=== PATIENT | female | born 1975 | race Two or more races ===

== ENCOUNTER 2019-11-23 10:44 | Inpatient (IN) | payer OTHER ==
[~2019-11-23] VITALS: Ht 167.6 cm; Wt 88.2 kg
--- NOTE | 2019-11-23 11:56 | NUR ---
PT TO ROOM FROM LOBBY AT THIS TIME.
--- NOTE | 2019-11-23 12:14 | NUR ---
44 Y/O FEMALE PRESENTS TO ED WITH C/O ABDOMINAL PAIN. PER PT "I'VE HAD BELLY PAIN FOR 6 MONTHS. I STARTED BLEEDING TODAY. WHEN I POOPED THERE WAS BLOOD." NO C/O DYSURIA, N/V/D, TRAUMA, SYNCOPE, CP. PT AMBULATORY WITH STEADY GAIT TO BATHROOM.
[2019-11-23 13:02] LABS: BASOPHILS # (AUTO) 0.05 x10^3/uL (0-0.1); BASOPHILS % (AUTO) 1 % (0-1); EOSINOPHILS # (AUTO) 0.11 x10^3/uL (0-0.4); EOSINOPHILS % (AUTO) 2 % (1-7); LYMPHOCYTES # (AUTO) 1.29 x10^3/uL (1-3.4); LYMPHOCYTES % (AUTO) 19 % (22-44); MD NO; MEAN CORPUSCULAR HEMOGLOBIN 26.5 pg (27.0-34.8); MEAN CORPUSCULAR HGB CONC 32.9 g/dL (32.4-35.8); MEAN CORPUSCULAR VOLUME 80.6 fL (80-100); MEAN PLATELET VOLUME 10.6 fL (7.4-10.4); MONOCYTES # (AUTO) 0.36 x10^3/uL (0.2-0.8); MONOCYTES % (AUTO) 5 % (2-9); NEUTROPHILS # (AUTO) 5.11 x10^3/uL (1.8-6.8); NEUTROPHILS % (AUTO) 74 % (42-75); PLATELET COUNT 221 x10^3/uL (130-400); RED BLOOD COUNT 4.85 x10^6/uL (3.82-5.3); RED CELL DISTRIBUTION WIDTH 14.2 % (9.6-15.2)
[2019-11-23 13:12] LABS: ALBUMIN 3.5 g/dL (3.4-5.0); ANION GAP 7 mmol/L (5-15); CALCIUM 8.6 mg/dL (8.5-10.1); CHLORIDE 112 mmol/L (98-107)
--- NOTE | 2019-11-23 13:14 | NUR ---
piv established. PT TOLERATED WITH NO COMPLICATIONS.
[2019-11-23 13:49] LABS: MICROSCOPIC INDICATED
[2019-11-23 13:50] LABS: CULTURE INDICATED? YES
--- NOTE | 2019-11-23 14:14 | NUR ---
TASK RN: FIRST CONTACT WITH PT. Pt resting on gurney connected to spo2 monitor and nibp cuff. Sister is at bedside. NADN. No needs expressed, call light within reach.
--- NOTE | 2019-11-23 14:38 | NUR ---
CT DELAYED TO DO CODE NEURO FIRST
--- NOTE | 2019-11-23 14:59 | NUR ---
pt resting on guluizamSTATZ. doretha. pt playing on phone and watching tv. awaiting ct. no other needs requested at this time.
--- NOTE | 2019-11-23 15:10 | NUR ---
PT TO IMAGING
--- NOTE | 2019-11-23 15:39 | NUR ---
PT BACK FROM IMAGING.
[2019-11-23] MEDS ORDERED: OMNIPAQUE 350 MG/ML, 100ML BOTTLE ONE (16:43)
--- NOTE | 2019-11-23 16:47 | NUR ---
pt resting on dominic. doretha. friend bedside. explained to pt that another dr was being called. no needs requested at this time.
[2019-11-23] MEDS ORDERED: GADOTERATE 10 MMOL/20 ML VIAL ONE (17:49)
--- NOTE | 2019-11-23 18:00 | NUR ---
PT AT IMAGING.
--- NOTE | 2019-11-23 18:52 | NUR ---
LATE ENTRY FOR 1820 REPORT TO ROBERT DUBON. ALL QUESTIONS ANSWERED.
--- NOTE | 2019-11-23 19:00 | NUR ---
PT TRANSFERRED TO FLOOR. PT LEFT WITH ALL PERSONAL BELONGINGS.
[2019-11-23] MEDS ORDERED: ENALAPRILAT 1.25 MG/ML, 2ML IVPush PRN (19:30)
[2019-11-23] MEDS ORDERED: MOVIPREP POWDER 1 PREP KIT PO ONE (19:30)
[2019-11-23] MEDS ORDERED: TEMAZEPAM 15 MG CAPSULE PO PRN (19:30)
[2019-11-23] MEDS ORDERED: LIDODERM 5% PATCH TD PRN (19:30)
[2019-11-23] MEDS ORDERED: BISACODYL 10 MG SUPP PR PRN (19:30)
[2019-11-23] MEDS ORDERED: PLEASE ENTER ALLERGIES MC SCH ×2 (19:30→20:00)
[2019-11-23 22:16] VITALS: BP 158/87
[2019-11-23] MEDS: ONDANSETRON 2MG/ML, 2ML IVPush PRN (22:30)
[2019-11-24] MEDS ORDERED: MOVIPREP POWDER 1 PREP KIT PO ONE ×2 (01:30→18:00)
[2019-11-24 01:50] VITALS: BP 149/90
[2019-11-24] MEDS: ONDANSETRON 2MG/ML, 2ML IVPush PRN ×3 (03:28→18:21)
[2019-11-24 06:23] LABS: BASOPHILS # (AUTO) 0.05 x10^3/uL (0-0.1); BASOPHILS % (AUTO) 1 % (0-1); EOSINOPHILS % (AUTO) 0 % (1-7); LYMPHOCYTES # (AUTO) 0.71 x10^3/uL (1-3.4); LYMPHOCYTES % (AUTO) 8 % (22-44); MD NO; MEAN CORPUSCULAR HEMOGLOBIN 26.6 pg (27.0-34.8); MEAN CORPUSCULAR HGB CONC 33.3 g/dL (32.4-35.8); MEAN CORPUSCULAR VOLUME 79.8 fL (80-100); MEAN PLATELET VOLUME 10.5 fL (7.4-10.4); MONOCYTES # (AUTO) 0.26 x10^3/uL (0.2-0.8); MONOCYTES % (AUTO) 3 % (2-9); NEUTROPHILS # (AUTO) 7.44 x10^3/uL (1.8-6.8); NEUTROPHILS % (AUTO) 88 % (42-75); PLATELET COUNT 218 x10^3/uL (130-400); RED BLOOD COUNT 4.87 x10^6/uL (3.82-5.3); RED CELL DISTRIBUTION WIDTH 14.2 % (9.6-15.2)
[2019-11-24 06:35] LABS: ANION GAP 9 mmol/L (5-15); CALCIUM 8.3 mg/dL (8.5-10.1); CHLORIDE 108 mmol/L (98-107); CREATININE 0.61 mg/dL (0.55-1.02)
[2019-11-24] MEDS ORDERED: FLU VACC QS2019-20 36MOS UP/PF 0.5 ML IM-VACC ONE (07:30)
[2019-11-24 07:54] VITALS: BP 136/86
[2019-11-24] MEDS ORDERED: PROMETHAZINE 25 MG/ML, 1ML IM PRN (08:30)
[2019-11-24 08:47] LABS: PROTHROMBIN TIME 10.6 Seconds (9.6-11.5)
[2019-11-24 13:47] VITALS: BP 116/69
[2019-11-24] MEDS: morphine SULFATE 10 MG/ML, 1ML IVPush PRN (19:26)
[2019-11-24 19:31] VITALS: BP 129/83
[2019-11-25 00:15] VITALS: BP 123/83
[2019-11-25 06:59] VITALS: BP 105/69
[2019-11-25] MEDS ORDERED: MIDAZOLAM 1 MG/ML, 5ML ONE ×2 (09:01→10:30)
[2019-11-25] MEDS ORDERED: FENTANYL PF 100 MCG/2ML ONE ×2 (09:01→10:30)
[2019-11-25] MEDS ORDERED: LIDOCAINE 1%, 10ML ONE (10:24)
[2019-11-25] MEDS ORDERED: FLUMAZENIL 0.1 MG/1 ML, 5ML ONE (10:30)
[2019-11-25] MEDS ORDERED: NALOXONE 1 MG/ML, 2ML ONE (10:30)
[2019-11-25 12:45] VITALS: BP 134/77
[2019-11-25] MEDS: morphine SULFATE 10 MG/ML, 1ML IVPush PRN ×2 (13:37→22:14)
[2019-11-25] MEDS: SODIUM CHLORIDE 0.9% 1,000 ML IV SCH ×2 (14:30→23:48)
[2019-11-25 19:56] VITALS: BP 153/95
[2019-11-26 00:08] VITALS: BP 105/69
[2019-11-26] MEDS: CEFTRIAXONE PMX 1GM/50ML 50 ML IV SCH (06:22)
[2019-11-26 07:52] VITALS: BP 108/74
[2019-11-26] MEDS: SODIUM CHLORIDE 0.9% 1,000 ML IV SCH ×2 (08:53→21:27)
[2019-11-26] MEDS: morphine SULFATE 10 MG/ML, 1ML IVPush PRN (08:54)
[2019-11-26] MEDS ORDERED: MIDAZOLAM 1 MG/ML, 5ML ONE (10:37)
[2019-11-26] MEDS ORDERED: FLUMAZENIL 0.1 MG/1 ML, 5ML ONE (10:37)
[2019-11-26] MEDS ORDERED: FENTANYL PF 100 MCG/2ML ONE (10:37)
[2019-11-26] MEDS ORDERED: NALOXONE 1 MG/ML, 2ML ONE (10:37)
[2019-11-26] MEDS ORDERED: OMNIPAQUE 350 MG/ML, 75ML BOTTLE ONE (10:51)
[2019-11-26 14:15] VITALS: BP 121/74
[2019-11-26 19:04] VITALS: BP 143/88
[2019-11-27 02:06] VITALS: BP 116/67
[2019-11-27] MEDS: morphine SULFATE 10 MG/ML, 1ML IVPush PRN (05:32)
[2019-11-27] MEDS: CEFTRIAXONE PMX 1GM/50ML 50 ML IV SCH (05:34)
[2019-11-27 07:03] VITALS: BP 129/77
[2019-11-27] MEDS: SODIUM CHLORIDE 0.9% 1,000 ML IV SCH (08:56)
[2019-11-27 10:07] LABS: ALANINE AMINOTRANSFERASE 19 U/L (12-78); ANION GAP 4 mmol/L (5-15); CHLORIDE 108 mmol/L (98-107)
[2019-11-27 10:09] LABS: ALKALINE PHOSPHATASE 81 U/L (45-117); BILIRUBIN,TOTAL 0.4 mg/dL (0.2-1.0); TOTAL PROTEIN 7.1 g/dL (6.4-8.2)
[2019-11-27 13:04] VITALS: BP 118/78
[2019-11-27] MEDS ORDERED: POTASSIUM CHLORIDE 20 MEQ TAB.ER.PRT PO ONE (13:30)
[2019-11-27] MEDS ORDERED: ACETAMINOPHEN 325 MG TABLET PO PRN (14:00)
[2019-11-27] MEDS: NS + 20MEQ KCL 1,000 ML IV SCH (16:11)
[2019-11-27 19:14] VITALS: BP 126/71
[2019-11-27] MEDS: POLYETHYLENE GLYCOL 17 GM PACKET PO SCH (20:27)
[2019-11-28 01:02] VITALS: BP 120/73
[2019-11-28] MEDS: NS + 20MEQ KCL 1,000 ML IV SCH (01:52)
[2019-11-28 05:07] LABS: ANION GAP 5 mmol/L (5-15); CALCIUM 8.1 mg/dL (8.5-10.1); CHLORIDE 114 mmol/L (98-107); CREATININE 0.43 mg/dL (0.55-1.02)
[2019-11-28] MEDS: CEFTRIAXONE PMX 1GM/50ML 50 ML IV SCH (05:35)
[2019-11-28 07:38] VITALS: BP 124/84
[2019-11-28] MEDS: POLYETHYLENE GLYCOL 17 GM PACKET PO SCH ×2 (08:35→19:37)
[2019-11-28 13:06] VITALS: BP 121/75
[2019-11-28 19:21] VITALS: BP 131/84
[2019-11-29 00:50] VITALS: BP 106/72
[2019-11-29 04:58] LABS: ANION GAP 8 mmol/L (5-15); CALCIUM 8.4 mg/dL (8.5-10.1); CHLORIDE 110 mmol/L (98-107); CREATININE 0.43 mg/dL (0.55-1.02)
[2019-11-29 08:31] VITALS: BP 120/83
[2019-11-29] MEDS: POLYETHYLENE GLYCOL 17 GM PACKET PO SCH (09:01)
[2019-11-29] MEDS ORDERED: POLY17PO5 PO (13:08)
[2019-11-29 13:17] VITALS: BP 125/82
== END 2019-11-29 14:15 | disposition home or self-care (01) | DRG 375 ==
LOC: ED 12:49 → EDIP 16:48 → 4NW 18:52 → DCLOUNGE 11-29 14:00
PROVIDERS: ADMIT Hospitalist; ATTEND Family Medicine
PROC: 0DBN8ZX Excision of Sigmoid Colon, Via Natural or Artificial Opening Endoscopic, Diagnostic (ICD-10-PCS; 2019-11-25)
PROC: 0DBP8ZX Excision of Rectum, Via Natural or Artificial Opening Endoscopic, Diagnostic (ICD-10-PCS; principal; 2019-11-25 09:00)
DX: C18.7 Malignant neoplasm of sigmoid colon (principal); N39.0 Urinary tract infection, site not specified; B96.89 Other specified bacterial agents as the cause of diseases classified elsewhere; E11.9 Type 2 diabetes mellitus without complications; D17.9 Benign lipomatous neoplasm, unspecified; E66.01 Morbid (severe) obesity due to excess calories; Z51.5 Encounter for palliative care; K62.1 Rectal polyp; K76.9 Liver disease, unspecified; T45.1X5A Adverse effect of antineoplastic and immunosuppressive drugs, initial encounter; Z80.49 Family history of malignant neoplasm of other genital organs; Z23 Encounter for immunization; Z82.49 Family history of ischemic heart disease and other diseases of the circulatory system; Z83.3 Family history of diabetes mellitus; Z85.038 Personal history of other malignant neoplasm of large intestine; Z98.51 Tubal ligation status; Z68.31 Body mass index [BMI] 31.0-31.9, adult
CPT/HCPCS: 36415; 47000; 71260; 74177; 74183; 76942; 77012; 80048; 80053; 81001; 82040; 82378; 83735; 84100; 84703; 85025; 85610; 87077; 87086; 87186; 88305; 90686; 99152; 99153; 99156; 99157; 99285; G0378; J0696; J2250; J2405; J2550; J3010; J3480; Q9967; A4648; A9575; J2270; J2310; J7030

== ENCOUNTER → 2019-12-03 | Outpatient (CLI) | payer OTHER ==
[~2019-12-03] MED LIST: POLY17PO5 PO
== END | disposition home or self-care (01) ==
LOC: PETCFH 07:45
PROVIDERS: ATTEND Family Medicine
DX: C18.9 Malignant neoplasm of colon, unspecified (principal)
CPT/HCPCS: 78815; A9552

== ENCOUNTER 2019-12-17 07:04 | Day surgery (SDC) | payer OTHER ==
[~2019-12-17] VITALS: Ht 165.1 cm; Wt 86.6 kg
[2019-12-17] MEDS ORDERED: LIDOCAINE 1%, 10ML ONE (07:26)
[2019-12-17] MEDS ORDERED: LIDOCAINE 1%, 20ML ONE (07:27)
[2019-12-17 07:42] VITALS: BP 131/84
[2019-12-17] MEDS ORDERED: IBUP-1623 PO (07:45)
[2019-12-17] MEDS ORDERED: POLY17PO5 PO (07:45)
[2019-12-17] MEDS ORDERED: CEFAZOLIN PMX 1GM/50ML 50 ML ONE (07:53)
[2019-12-17] MEDS ORDERED: CEFAZOLIN PMX 1GM/50ML 50 ML IV ONE (08:00)
[2019-12-17] MEDS ORDERED: SODIUM CHLORIDE 0.9% 1,000 ML IV SCH (08:00)
[2019-12-17] MEDS ORDERED: FLUMAZENIL 0.1 MG/1 ML, 5ML ONE (08:14)
[2019-12-17] MEDS ORDERED: FENTANYL PF 100 MCG/2ML ONE ×2 (08:14)
[2019-12-17] MEDS ORDERED: MIDAZOLAM 1 MG/ML, 5ML ONE (08:14)
[2019-12-17] MEDS ORDERED: NALOXONE 1 MG/ML, 2ML ONE (08:14)
[2020-02-04] MEDS ORDERED: POLY17PO5 PO (09:14)
[2020-02-04] MEDS ORDERED: HYDR-3240 PO (09:14)
[2020-02-04] MEDS ORDERED: POTA20TA6 PO (09:14)
[2020-02-04] MEDS ORDERED: SENN-193 PO (09:14)
== END 2019-12-17 10:55 | disposition home or self-care (01) ==
LOC: OUT 07:04
PROVIDERS: ATTEND Internal Medicine
DX: C18.7 Malignant neoplasm of sigmoid colon (principal); Z98.51 Tubal ligation status; Z80.41 Family history of malignant neoplasm of ovary
CPT/HCPCS: 36561; 76937; 77001; 99156; 99157; C1788; C1894; J0690; J1642; J2250; J3010; J7030; J2310

== ENCOUNTER 2020-03-07 08:25 | Inpatient (IN) | payer OTHER ==
[~2020-03-07] VITALS: Ht 165.1 cm; Wt 84.3 kg
[~2020-03-07 08:25] MED LIST changes: +HYDR-3240 PO; +IBUP-1623 PO; +POTA20TA6 PO; +SENN-193 PO
[2020-03-07] MEDS ORDERED: MORPHINE SULFATE 4 MG/ML, 1ML IVPush PRN (09:00)
[2020-03-07] MEDS ORDERED: ONDANSETRON 2MG/ML, 2ML IVPush ONE (09:00)
[2020-03-07] MEDS ORDERED: SODIUM CHLORIDE FLUSH 10ML SYR IVF ONE (09:00)
[2020-03-07] MEDS ORDERED: SODIUM CHLORIDE 0.9% 1,000ML IVBOLUS ONE (09:00)
--- NOTE | 2020-03-07 09:08 | NUR ---
CONSTIPATION AND ABDOMINAL PAIN. UNDERGOING TX FOR COLON CA WITH STENT PLACED ONE MONTH AGO. PT OFF FLOOR TO XRAY
[2020-03-07] MEDS ORDERED: ONDANSETRON 2MG/ML, 2ML ONE ×3 (09:39→13:54)
[2020-03-07] MEDS ORDERED: METRONIDAZOLE PMX 500MG/100ML 100 ML ONE (09:39)
[2020-03-07] MEDS ORDERED: MORPHINE SULFATE 4 MG/ML, 1ML ONE (09:40)
[2020-03-07 09:58] LABS: CHLORIDE 109 mmol/L (98-107)
[2020-03-07 09:59] LABS: MEAN CORPUSCULAR HEMOGLOBIN 26.2 pg (27.0-34.8); MEAN CORPUSCULAR HGB CONC 32.9 g/dL (32.4-35.8); MEAN CORPUSCULAR VOLUME 79.7 fL (80-100); MEAN PLATELET VOLUME 9.2 fL (7.4-10.4); PLATELET COUNT 156 x10^3/uL (130-400); RED BLOOD COUNT 4.27 x10^6/uL (3.82-5.3)
[2020-03-07] MEDS ORDERED: METRONIDAZOLE PMX 500MG/100ML 100 ML IV ONE (10:00)
[2020-03-07] MEDS ORDERED: CEFOTETAN PMX 2GM/50ML 50 ML IV ONE (10:00)
[2020-03-07 10:04] LABS: ALANINE AMINOTRANSFERASE 35 U/L (12-78); ALBUMIN 2.9 g/dL (3.4-5.0); ANION GAP 8 mmol/L (5-15); CALCIUM 8.4 mg/dL (8.5-10.1); CREATININE 0.47 mg/dL (0.55-1.02)
--- NOTE | 2020-03-07 10:20 | NUR ---
AFTER 2 SETS OF CULTURES OBTAINED, ANTIBIOTICS INFUSING WITH IV BOLUS PER ORDERS AND MEDICATED FOR ABDOMINAL PAIN. MD DISCUSSING RESULTS OF XRAY AND NEED FOR SURGERY. TO CT VIA GLADYS.
[2020-03-07 10:23] LABS: ALKALINE PHOSPHATASE 96 U/L (45-117); BILIRUBIN,TOTAL 0.8 mg/dL (0.2-1.0); TOTAL PROTEIN 7.3 g/dL (6.4-8.2)
[2020-03-07 10:48] LABS: MD YES
[2020-03-07 10:52] LABS: BAND#(MANUAL) 0.46 x10^3/uL; BANDS%(MANUAL) 8 % (0-7); BASOS#(MANUAL) 0.06 x10^3/uL (0-0.1); BASOS% (MANUAL) 1 % (0-1); EOS#(MANUAL) 0.06 x10^3/uL (0.0-0.4); EOS% (MANUAL) 1 % (1-7); LYMPH#(MANUAL) 0.52 x10^3/uL (1-3.4); LYMPHS% (MANUAL) 9 % (22-44); MONOS#(MANUAL) 0.06 x10^3/uL (0.3-2.7); MONOS% (MANUAL) 1 % (2-9); SEG#(MANUAL) 4.64 x10^3/uL (1.8-6.8); SEGS% (MANUAL) 80 % (42-75)
[2020-03-07 10:53] LABS: <PLATELET ESTIMATE> ADEQUATE; <PLT MORPHOLOGY> NORMAL PLT MORPH; <RBC MORPHOLOGY> NORMAL
[2020-03-07] MEDS ORDERED: OMNIPAQUE 350 MG/ML, 100ML BOTTLE ONE (11:19)
--- NOTE | 2020-03-07 11:20 | NUR ---
REPORT TO MAXIM JONES. PT TO BE TRANSPORTED TO FLOOR.
[2020-03-07 11:35] VITALS: BP 129/71
[2020-03-07] MEDS ORDERED: CHLORHEXIDINE 15 ML UDC MM ONE (12:00)
[2020-03-07] MEDS ORDERED: MIDAZOLAM 1 MG/ML, 2ML ONE ×2 (12:02→12:26)
[2020-03-07] MEDS ORDERED: FENTANYL PF 250 MCG/5ML ONE ×2 (12:02→12:26)
[2020-03-07] MEDS ORDERED: SUCCINYLCHOLINE 20 MG/ML, 10ML ONE ×2 (12:26→13:54)
[2020-03-07] MEDS ORDERED: ROCURONIUM 10MG/ML,5ML ONE ×2 (12:26→13:54)
[2020-03-07] MEDS ORDERED: PROPOFOL 10 MG/ML, 20ML ONE ×2 (12:26→13:54)
[2020-03-07] MEDS ORDERED: NEOSTIGMINE 1 MG/ML, 10ML ONE ×2 (12:26→13:54)
[2020-03-07] MEDS ORDERED: GLYCOPYRROLATE 0.2MG/1ML, 5ML ONE ×2 (12:26→13:54)
[2020-03-07] MEDS ORDERED: FENTANYL PF 100 MCG/2ML ONE ×4 (12:26→15:08)
[2020-03-07] MEDS ORDERED: SODIUM CHLORIDE 0.9% 1,000 ML IV SCH (13:28)
[2020-03-07] MEDS ORDERED: ONDANSETRON 2MG/ML, 2ML IVPush PRN (13:30)
[2020-03-07] MEDS ORDERED: hydrALAzine 20 MG/ML, 1ML IVPush PRN (13:30)
[2020-03-07] MEDS ORDERED: HYDROmorphone 2 MG/ML, 1ML IVPush PRN (13:30)
[2020-03-07] MEDS ORDERED: DEXAMETHASONE 4 MG/ML, 1ML ONE (13:54)
[2020-03-07] MEDS ORDERED: CEFAZOLIN 1,000 MG ONE (13:54)
[2020-03-07] MEDS ORDERED: OXYcodone 5 MG/5 ML ORAL.SOL UDC ONE (14:42)
[2020-03-07] MEDS: FENTANYL PF 100 MCG/2ML IV PRN ×4 (14:44→15:21)
[2020-03-07] MEDS ORDERED: HALOPERIDOL 5 MG/ML IV PRN (15:00)
[2020-03-07] MEDS ORDERED: MEPERIDINE/PF 25MG/0.5ML IVPush PRN (15:00)
[2020-03-07] MEDS ORDERED: hydrALAzine 20 MG/ML, 1ML IV PRN (15:00)
[2020-03-07] MEDS ORDERED: DIPHENHYDRAMINE 50 MG/ML, 1ML IVPush PRN ×2 (15:00→16:30)
[2020-03-07] MEDS ORDERED: LABETALOL 5MG/ML, 20ML IV PRN (15:00)
[2020-03-07] MEDS ORDERED: PROMETHAZINE 25 MG/ML, 1ML IVPush PRN (15:00)
[2020-03-07] MEDS ORDERED: OXYcodone 5 MG/5 ML ORAL.SOL UDC PO PRN (15:00)
[2020-03-07] MEDS ORDERED: HYDROmorphone 1 MG/ML, 1ML INJ IVPush PRN (15:00)
[2020-03-07] MEDS ORDERED: HYDROmorphone 1 MG/ML, 1ML INJ ONE (15:33)
[2020-03-07 16:20] VITALS: BP 99/62
[2020-03-07] MEDS ORDERED: TRAZODONE 50MG TABLET PO PRN (16:30)
[2020-03-07] MEDS ORDERED: CALCIUM CARBONATE 500 MG TAB.CHEW PO PRN (16:30)
[2020-03-07] MEDS ORDERED: HALOPERIDOL 5 MG/ML IVPush PRN (16:30)
[2020-03-07] MEDS ORDERED: SCOPOLAMINE 1MG PATCH TD PRN (16:30)
[2020-03-07] MEDS ORDERED: LORazepam 2 MG/ML, 1ML IVPush PRN (16:30)
[2020-03-07] MEDS ORDERED: DEXAMETHASONE 4 MG/ML, 1ML IVPush PRN (16:30)
[2020-03-07] MEDS ORDERED: DIPHENHYDRAMINE 25 MG CAPSULE PO PRN (16:30)
[2020-03-07] MEDS ORDERED: LORazepam 1MG TABLET PO PRN (16:30)
[2020-03-07] MEDS: PIPERACILLIN/TAZO/PMX 3.375GM 50 ML IV SCH (18:34)
[2020-03-07] MEDS: LACTATED RINGERS 1,000 ML IV SCH (18:34)
[2020-03-07] MEDS: ACETAMINOPHEN 500 MG TABLET PO SCH (18:34)
[2020-03-07] MEDS: KETOROLAC 30 MG/1 ML IVPush SCH (18:35)
[2020-03-07] MEDS: ONDANSETRON 2MG/ML, 2ML IV PRN (18:42)
[2020-03-07 19:42] LABS: MICROSCOPIC INDICATED
[2020-03-07 20:17] VITALS: BP 100/53
[2020-03-07] MEDS: FAMOTIDINE 20 MG/2 ML IVPush SCH (20:36)
[2020-03-07] MEDS: INSULIN REGULAR, HUMAN 100 UNIT/ML 3ML VIAL LOW DOSE SS SQ-INSULIN SCH (20:36)
[2020-03-07 23:28] VITALS: BP 95/59
[2020-03-08] MEDS: KETOROLAC 30 MG/1 ML IVPush SCH ×4 (00:34→18:30)
[2020-03-08] MEDS: ACETAMINOPHEN 500 MG TABLET PO SCH ×4 (00:35→18:30)
[2020-03-08] MEDS: PIPERACILLIN/TAZO/PMX 3.375GM 50 ML IV SCH ×4 (00:36→18:30)
[2020-03-08] MEDS: LACTATED RINGERS 1,000 ML IV SCH ×3 (02:22→22:15)
[2020-03-08 03:57] VITALS: BP 98/67
[2020-03-08 04:44] LABS: MEAN CORPUSCULAR HEMOGLOBIN 26.2 pg (27.0-34.8); MEAN CORPUSCULAR HGB CONC 32.6 g/dL (32.4-35.8); MEAN CORPUSCULAR VOLUME 80.3 fL (80-100); MEAN PLATELET VOLUME 9.3 fL (7.4-10.4); PLATELET COUNT 115 x10^3/uL (130-400); RED BLOOD COUNT 3.41 x10^6/uL (3.82-5.3); RED CELL DISTRIBUTION WIDTH 16.4 % (9.6-15.2)
[2020-03-08 04:54] LABS: ALBUMIN 1.9 g/dL (3.4-5.0); ANION GAP 7 mmol/L (5-15); CALCIUM 7.9 mg/dL (8.5-10.1); CHLORIDE 109 mmol/L (98-107)
[2020-03-08 04:57] LABS: ALANINE AMINOTRANSFERASE 23 U/L (12-78); ALKALINE PHOSPHATASE 72 U/L (45-117); BILIRUBIN,TOTAL 0.7 mg/dL (0.2-1.0); CREATININE 0.43 mg/dL (0.55-1.02); TOTAL PROTEIN 5.6 g/dL (6.4-8.2)
[2020-03-08 05:43] LABS: MD YES
[2020-03-08 05:45] LABS: BAND#(MANUAL) 0.76 x10^3/uL; BANDS%(MANUAL) 12 % (0-7); MONOS#(MANUAL) 0.06 x10^3/uL (0.3-2.7); MONOS% (MANUAL) 1 % (2-9)
[2020-03-08 05:46] LABS: <PLATELET ESTIMATE> DECREASED; <PLT MORPHOLOGY> NORMAL PLT MORPH; <RBC MORPHOLOGY> NORMAL; LYMPH#(MANUAL) 1.07 x10^3/uL (1-3.4); LYMPHS% (MANUAL) 17 % (22-44); SEG#(MANUAL) 4.41 x10^3/uL (1.8-6.8); SEGS% (MANUAL) 70 % (42-75)
[2020-03-08] MEDS: INSULIN REGULAR, HUMAN 100 UNIT/ML 3ML VIAL LOW DOSE SS SQ-INSULIN SCH ×4 (07:08→21:00)
[2020-03-08 07:26] VITALS: BP 98/62
[2020-03-08] MEDS: SENNA/DOCUSATE TABLET PO SCH (08:38)
[2020-03-08] MEDS: FAMOTIDINE 20 MG/2 ML IVPush SCH (08:38)
[2020-03-08] MEDS: ENOXAPARIN 40 MG/0.4 ML SQ SCH (08:38)
[2020-03-08 13:24] VITALS: BP 107/64
[2020-03-08] MEDS: D5%-0.9% NACL+KCL 20MEQ 1,000 ML IV SCH (15:56)
[2020-03-08] MEDS ORDERED: LACTATED RINGERS 1,000 ML IV SCH (16:30)
[2020-03-08] MEDS: ONDANSETRON 2MG/ML, 2ML IV PRN (17:29)
[2020-03-08 19:26] VITALS: BP 103/61
[2020-03-08] MEDS: FAMOTIDINE 20 MG TABLET PO SCH (21:33)
[2020-03-09] MEDS: ACETAMINOPHEN 500 MG TABLET PO SCH ×4 (01:08→21:07)
[2020-03-09] MEDS: KETOROLAC 30 MG/1 ML IVPush SCH ×4 (01:08→21:07)
[2020-03-09 01:11] VITALS: BP 110/71
[2020-03-09] MEDS: PIPERACILLIN/TAZO/PMX 3.375GM 50 ML IV SCH ×4 (01:15→18:42)
[2020-03-09 05:30] LABS: ALBUMIN 1.9 g/dL (3.4-5.0); ANION GAP 6 mmol/L (5-15); CALCIUM 7.5 mg/dL (8.5-10.1); CHLORIDE 108 mmol/L (98-107)
[2020-03-09 05:31] LABS: MEAN CORPUSCULAR HEMOGLOBIN 26.3 pg (27.0-34.8); MEAN CORPUSCULAR HGB CONC 32.7 g/dL (32.4-35.8); MEAN CORPUSCULAR VOLUME 80.3 fL (80-100); MEAN PLATELET VOLUME 9.9 fL (7.4-10.4); PLATELET COUNT 124 x10^3/uL (130-400); RED BLOOD COUNT 3.38 x10^6/uL (3.82-5.3); RED CELL DISTRIBUTION WIDTH 16.2 % (9.6-15.2)
[2020-03-09 05:35] LABS: ALANINE AMINOTRANSFERASE 23 U/L (12-78); ALKALINE PHOSPHATASE 77 U/L (45-117); BILIRUBIN,TOTAL 0.5 mg/dL (0.2-1.0); CREATININE 0.44 mg/dL (0.55-1.02); TOTAL PROTEIN 5.6 g/dL (6.4-8.2)
[2020-03-09] MEDS: LACTATED RINGERS 1,000 ML IV SCH ×2 (05:50→16:27)
[2020-03-09 06:23] LABS: BAND#(MANUAL) 0.72 x10^3/uL; BANDS%(MANUAL) 10 % (0-7); LYMPH#(MANUAL) 1.51 x10^3/uL (1-3.4); LYMPHS% (MANUAL) 21 % (22-44); MD YES; MONOS#(MANUAL) 0.14 x10^3/uL (0.3-2.7); MONOS% (MANUAL) 2 % (2-9); SEG#(MANUAL) 4.82 x10^3/uL (1.8-6.8); SEGS% (MANUAL) 67 % (42-75)
[2020-03-09 06:24] LABS: TOXIC GRAN 1+
[2020-03-09 06:25] LABS: <PLATELET ESTIMATE> DECREASED; <PLT MORPHOLOGY> NORMAL PLT MORPH; <RBC MORPHOLOGY> NORMAL
[2020-03-09] MEDS: D5%-0.9% NACL+KCL 20MEQ 1,000 ML IV SCH ×2 (06:28→18:42)
[2020-03-09 07:26] VITALS: BP 136/91
[2020-03-09] MEDS: INSULIN REGULAR, HUMAN 100 UNIT/ML 3ML VIAL LOW DOSE SS SQ-INSULIN SCH ×4 (08:10→21:00)
[2020-03-09] MEDS: FAMOTIDINE 20 MG TABLET PO SCH ×2 (08:22→21:00)
[2020-03-09] MEDS: SENNA/DOCUSATE TABLET PO SCH (08:22)
[2020-03-09] MEDS: ENOXAPARIN 40 MG/0.4 ML SQ SCH (08:23)
[2020-03-09 12:30] VITALS: BP 132/85
[2020-03-09] MEDS: POTASSIUM CHLORIDE 20 MEQ TAB.ER.PRT PO SCH (18:42)
[2020-03-09 19:53] VITALS: BP 120/82
[2020-03-09] MEDS ORDERED: FAMOTIDINE 40 MG TABLET ONE (21:04)
[2020-03-10] MEDS: PIPERACILLIN/TAZO/PMX 3.375GM 50 ML IV SCH ×4 (00:29→18:44)
[2020-03-10 01:07] VITALS: BP 121/81
[2020-03-10] MEDS: LACTATED RINGERS 1,000 ML IV SCH (02:30)
[2020-03-10] MEDS: KETOROLAC 30 MG/1 ML IVPush SCH (03:40)
[2020-03-10] MEDS: ACETAMINOPHEN 500 MG TABLET PO SCH ×4 (03:40→20:56)
[2020-03-10 05:48] LABS: MEAN CORPUSCULAR HEMOGLOBIN 26.1 pg (27.0-34.8); MEAN CORPUSCULAR HGB CONC 32.4 g/dL (32.4-35.8); MEAN CORPUSCULAR VOLUME 80.3 fL (80-100); MEAN PLATELET VOLUME 8.9 fL (7.4-10.4); PLATELET COUNT 152 x10^3/uL (130-400); RED BLOOD COUNT 3.26 x10^6/uL (3.82-5.3); RED CELL DISTRIBUTION WIDTH 17.1 % (9.6-15.2)
[2020-03-10 05:54] LABS: ALANINE AMINOTRANSFERASE 20 U/L (12-78); ANION GAP 6 mmol/L (5-15); CALCIUM 7.3 mg/dL (8.5-10.1); CHLORIDE 112 mmol/L (98-107)
[2020-03-10 05:57] LABS: ALBUMIN 1.6 g/dL (3.4-5.0); ALKALINE PHOSPHATASE 82 U/L (45-117); BILIRUBIN,TOTAL 0.4 mg/dL (0.2-1.0); CREATININE 0.34 mg/dL (0.55-1.02); TOTAL PROTEIN 5.4 g/dL (6.4-8.2)
[2020-03-10 06:04] LABS: BASOPHILS # (AUTO) 0.02 x10^3/uL (0-0.1); BASOPHILS % (AUTO) 1 % (0-1); EOSINOPHILS % (AUTO) 2 % (1-7); LYMPHOCYTES # (AUTO) 0.67 x10^3/uL (1-3.4); LYMPHOCYTES % (AUTO) 15 % (22-44); MD SCAN; MONOCYTES # (AUTO) 0.16 x10^3/uL (0.2-0.8); MONOCYTES % (AUTO) 4 % (2-9); NEUTROPHILS # (AUTO) 3.53 x10^3/uL (1.8-6.8); NEUTROPHILS % (AUTO) 79 % (42-75)
[2020-03-10 06:25] VITALS: BP 118/77
[2020-03-10] MEDS: INSULIN REGULAR, HUMAN 100 UNIT/ML 3ML VIAL LOW DOSE SS SQ-INSULIN SCH ×3 (07:50→16:20)
[2020-03-10] MEDS ORDERED: OXYcodone/APAP 5/325MG TABLET PO PRN (08:30)
[2020-03-10] MEDS: SENNA/DOCUSATE TABLET PO SCH (09:00)
[2020-03-10] MEDS: FAMOTIDINE 20 MG TABLET PO SCH ×2 (09:17→20:56)
[2020-03-10] MEDS: ENOXAPARIN 40 MG/0.4 ML SQ SCH (09:17)
[2020-03-10] MEDS: POTASSIUM CHLORIDE 20 MEQ TAB.ER.PRT PO SCH (09:18)
[2020-03-10 12:49] VITALS: BP 143/77
[2020-03-10] MEDS: OXYcodone IR 5MG TABLET PO PRN ×3 (14:24→18:44)
[2020-03-10] MEDS: ONDANSETRON 2MG/ML, 2ML IV PRN ×2 (16:13→23:16)
[2020-03-10 18:34] VITALS: BP 138/93
[2020-03-10] MEDS: SODIUM CHLORIDE FLUSH 3ML SYRINGE IVF SCH (21:00)
[2020-03-11] MEDS: PIPERACILLIN/TAZO/PMX 3.375GM 50 ML IV SCH ×2 (00:35→05:52)
[2020-03-11 00:42] VITALS: BP 119/80
[2020-03-11] MEDS: ACETAMINOPHEN 500 MG TABLET PO SCH ×2 (02:11→08:39)
[2020-03-11] MEDS: OXYcodone IR 5MG TABLET PO PRN ×2 (02:11→10:02)
[2020-03-11 02:43] LABS: BASOPHILS # (AUTO) 0.01 x10^3/uL (0-0.1); BASOPHILS % (AUTO) 0 % (0-1); EOSINOPHILS % (AUTO) 3 % (1-7); LYMPHOCYTES # (AUTO) 1.08 x10^3/uL (1-3.4); LYMPHOCYTES % (AUTO) 31 % (22-44); MD NO; MEAN CORPUSCULAR HEMOGLOBIN 26.1 pg (27.0-34.8); MEAN CORPUSCULAR HGB CONC 32.8 g/dL (32.4-35.8); MEAN CORPUSCULAR VOLUME 79.6 fL (80-100); MEAN PLATELET VOLUME 8.3 fL (7.4-10.4); MONOCYTES # (AUTO) 0.26 x10^3/uL (0.2-0.8); MONOCYTES % (AUTO) 7 % (2-9); NEUTROPHILS # (AUTO) 2.03 x10^3/uL (1.8-6.8); NEUTROPHILS % (AUTO) 58 % (42-75); PLATELET COUNT 208 x10^3/uL (130-400); RED BLOOD COUNT 3.58 x10^6/uL (3.82-5.3); RED CELL DISTRIBUTION WIDTH 16.7 % (9.6-15.2)
[2020-03-11 02:50] LABS: ANION GAP 5 mmol/L (5-15); CALCIUM 7.9 mg/dL (8.5-10.1); CHLORIDE 106 mmol/L (98-107); CREATININE 0.39 mg/dL (0.55-1.02)
[2020-03-11] MEDS ORDERED: metroNIDAZOLE 500 MG TABLET PO SCH (08:30)
[2020-03-11] MEDS: FAMOTIDINE 20 MG TABLET PO SCH (08:39)
[2020-03-11] MEDS: SENNA/DOCUSATE TABLET PO SCH (08:40)
[2020-03-11] MEDS: SODIUM CHLORIDE FLUSH 3ML SYRINGE IVF SCH (08:40)
[2020-03-11] MEDS: ENOXAPARIN 40 MG/0.4 ML SQ SCH (08:40)
[2020-03-11 08:42] VITALS: BP 144/92
[2020-03-11] MEDS: ONDANSETRON 2MG/ML, 2ML IV PRN (08:43)
[2020-03-11] MEDS ORDERED: SULFAMETH./TRIMETHOPRIM DS 800MG/160MG TABLET PO SCH (09:00)
[2020-03-11] MEDS ORDERED: CEFDINIR 300 MG CAPSULE PO SCH (09:00)
[2020-03-11] MEDS ORDERED: CEFD300C37 PO (10:08)
[2020-03-11] MEDS ORDERED: OXYC5TAB3 PO (10:08)
[2020-03-11] MEDS ORDERED: METR500T PO (10:08)
[2020-03-11] MEDS ORDERED: ONDA4TAB7 PO (10:08)
== END 2020-03-11 14:44 | disposition home or self-care (01) | DRG 329 ==
LOC: ED 09:42 → EDIP 09:58 → 4NE 11:32 → 3WST 03-08 22:37 → DCLOUNGE 03-11 14:23
PROVIDERS: ADMIT Internal Medicine; ATTEND Internal Medicine
PROC: 0DBP0ZZ Excision of Rectum, Open Approach (ICD-10-PCS; 2020-03-07)
PROC: 0D1N0Z4 Bypass Sigmoid Colon to Cutaneous, Open Approach (ICD-10-PCS; principal; 2020-03-07 12:00)
DX: K63.1 Perforation of intestine (nontraumatic) (principal); K65.8 Other peritonitis; C19 Malignant neoplasm of rectosigmoid junction; C78.7 Secondary malignant neoplasm of liver and intrahepatic bile duct; D62 Acute posthemorrhagic anemia; D72.825 Bandemia; E87.6 Hypokalemia; E88.09 Other disorders of plasma-protein metabolism, not elsewhere classified; Z20.828 Contact with and (suspected) exposure to other viral communicable diseases; R73.02 Impaired glucose tolerance (oral)
CPT/HCPCS: 36415; 74021; 84145; 96365; 96375; 99285; J3490; 74177; 80048; 80053; 81001; 82330; 82962; 83605; 83735; 84100; 84703; 85025; 87040; 87070; 87075; 87076; 87077; 87147; 87186; 87205; 87635; 88307; G0378; J0690; J1100; J1170; J1650; J1885; J2250; J2270; J2405; J2543; J2704; J2710; J3010; Q9967; C1765; J0330; J3480; J7030; J7120

== ENCOUNTER 2020-03-23 20:26 | Emergency (ER) | payer OTHER ==
[~2020-03-23] VITALS: Ht 167.6 cm; Wt 76.5 kg
[~2020-03-23 20:26] MED LIST changes: +CEFD300C37 PO; +METR500T PO; +ONDA4TAB7 PO; +OXYC5TAB3 PO
[2020-03-23 20:28] VITALS: BP 120/82
[2020-03-23 21:14] LABS: BASOPHILS # (AUTO) 0.08 x10^3/uL (0-0.1); BASOPHILS % (AUTO) 1 % (0-1); EOSINOPHILS # (AUTO) 0.07 x10^3/uL (0-0.4); EOSINOPHILS % (AUTO) 1 % (1-7); LYMPHOCYTES % (AUTO) 22 % (22-44); MD NO; MEAN CORPUSCULAR HEMOGLOBIN 26.1 pg (27.0-34.8); MEAN CORPUSCULAR HGB CONC 32.2 g/dL (32.4-35.8); MEAN PLATELET VOLUME 7.7 fL (7.4-10.4); MONOCYTES # (AUTO) 0.83 x10^3/uL (0.2-0.8); MONOCYTES % (AUTO) 12 % (2-9); NEUTROPHILS # (AUTO) 4.53 x10^3/uL (1.8-6.8); NEUTROPHILS % (AUTO) 65 % (42-75); PLATELET COUNT 490 x10^3/uL (130-400); RED BLOOD COUNT 4.18 x10^6/uL (3.82-5.3); RED CELL DISTRIBUTION WIDTH 18.6 % (9.6-15.2)
[2020-03-23 21:23] LABS: ANION GAP 6 mmol/L (5-15); CALCIUM 8.8 mg/dL (8.5-10.1); CHLORIDE 109 mmol/L (98-107); CREATININE 0.62 mg/dL (0.55-1.02)
--- NOTE | 2020-03-23 22:24 | NUR ---
PT RECIEVED EXTENSIVE EDUCATION BY RN REGARDING COLOSTOMY BAG APPLICATION. PT AND FAMILY MEMBER VERBALIZED UNDERSTANDING.
== END 2020-03-23 22:26 | disposition home or self-care (01) ==
LOC: ED 20:47
DX: R10.9 Unspecified abdominal pain (principal); Z85.038 Personal history of other malignant neoplasm of large intestine
CPT/HCPCS: 36415; 80048; 85025; 99283

== ENCOUNTER → 2020-03-24 | Outpatient (CLI) | payer OTHER | END | disposition home or self-care (01) | LOC: PETCFH 08:50 | PROVIDERS: ATTEND Internal Medicine | DX: C18.7 Malignant neoplasm of sigmoid colon (principal); C78.7 Secondary malignant neoplasm of liver and intrahepatic bile duct; R91.8 Other nonspecific abnormal finding of lung field | CPT/HCPCS: 78815; A9552 ==

== ENCOUNTER 2020-04-09 11:05 | Emergency (ER) | payer OTHER ==
[~2020-04-09] VITALS: Ht 165.1 cm; Wt 76.4 kg
--- NOTE | 2020-04-09 11:24 | NUR ---
THIS IS A 45 YO F W/ C/O N/V/D SINCE SATURDAY THIS WEEK. DENIES FEVERS/CHILLS/SOB/CP. PT WAS DX W/ COLON CANCER IN NOVEMBER THIS YEAR. PER PTS DAUGHTER, PT RECEIVING CHEMO EVERY 15 DAYS AND HAS HAD 5 TREATMENTS, LAST TREATMENT SATURDAY. PT RESTING ON GURNEY W/ CALL LIGHT IN REACH AND FAMILY AT BEDSIDE. PT RESP EVEN AND UNLABORED, NADN. ROSEMARY JAMES AT BEDSIDE FOR ED EVAL.
[2020-04-09] MEDS ORDERED: ONDANSETRON 2MG/ML, 2ML ONE ×2 (11:54→16:13)
[2020-04-09] MEDS ORDERED: SODIUM CHLORIDE 0.9% 1,000ML IVBOLUS ONE (12:00)
[2020-04-09] MEDS ORDERED: ONDANSETRON 2MG/ML, 2ML IVPush ONE ×2 (12:00→16:30)
[2020-04-09] MEDS ORDERED: MORPHINE SULFATE 4 MG/ML, 1ML IVPush PRN (12:00)
[2020-04-09 12:12] LABS: BASOPHILS # (AUTO) 0.02 x10^3/uL (0-0.1); BASOPHILS % (AUTO) 0 % (0-1); EOSINOPHILS # (AUTO) 0.06 x10^3/uL (0-0.4); EOSINOPHILS % (AUTO) 1 % (1-7); LYMPHOCYTES # (AUTO) 1.05 x10^3/uL (1-3.4); LYMPHOCYTES % (AUTO) 20 % (22-44); MD NO; MEAN CORPUSCULAR HEMOGLOBIN 26.5 pg (27.0-34.8); MEAN CORPUSCULAR HGB CONC 32.3 g/dL (32.4-35.8); MEAN PLATELET VOLUME 9.9 fL (7.4-10.4); MONOCYTES # (AUTO) 0.18 x10^3/uL (0.2-0.8); MONOCYTES % (AUTO) 3 % (2-9); NEUTROPHILS # (AUTO) 4.05 x10^3/uL (1.8-6.8); NEUTROPHILS % (AUTO) 76 % (42-75); PLATELET COUNT 184 x10^3/uL (130-400); RED BLOOD COUNT 4.85 x10^6/uL (3.82-5.3)
[2020-04-09 12:36] LABS: ALBUMIN 3.5 g/dL (3.4-5.0); ANION GAP 8 mmol/L (5-15); CALCIUM 9.3 mg/dL (8.5-10.1); CHLORIDE 106 mmol/L (98-107)
--- NOTE | 2020-04-09 12:38 | NUR ---
PIV STARTED, LABS DRAWN, URINE COLLECTED AND SENT TO LAB. PT RESTING ON GURNEY W/ CALL LIGHT IN REACH AND FAMILY AT BEDSIDE. RESP EVEN AND UNLABORED, ISABELLE.
[2020-04-09 12:40] LABS: ALANINE AMINOTRANSFERASE 36 U/L (12-78); ALKALINE PHOSPHATASE 98 U/L (45-117); BILIRUBIN,TOTAL 0.6 mg/dL (0.2-1.0); CREATININE 0.57 mg/dL (0.55-1.02); TOTAL PROTEIN 8.4 g/dL (6.4-8.2)
[2020-04-09 12:42] LABS: MICROSCOPIC INDICATED
[2020-04-09] MEDS ORDERED: OMNIPAQUE 350 MG/ML, 100ML BOTTLE ONE (13:00)
--- NOTE | 2020-04-09 13:04 | NUR ---
Recieved report from ROBERT Brand. All questions answered. Assuming care of pt at this time. Pt away on guridaville at CT at this time.
--- NOTE | 2020-04-09 13:18 | NUR ---
Pt back to room from CT on [facility].
--- NOTE | 2020-04-09 13:34 | NUR ---
Pt resting on gurney connected to NIBP cuff and continous pulse ox monitor. Daughter at bedside. Pt denies pain. Pt denies needs at this time. Call light within reach. Bedrail up x 2 for safety measures.
[2020-04-09] MEDS ORDERED: CIPROFLOXACIN/PMX 400MG/200ML 100 ML IVPB ONE (14:00)
[2020-04-09] MEDS ORDERED: METRONIDAZOLE PMX 500MG/100ML 100 ML IVPB ONE (14:00)
[2020-04-09] MEDS ORDERED: CIPROFLOXACIN/PMX 400MG/200ML 200 ML ONE (14:08)
[2020-04-09] MEDS ORDERED: METRONIDAZOLE PMX 500MG/100ML 100 ML ONE (14:09)
--- NOTE | 2020-04-09 14:26 | NUR ---
PIV medications infusing per EMAR. NADN. Pt stating she has nausea. EDMD notified. No other needs requested at this time. Call light within reach.
--- NOTE | 2020-04-09 17:26 | NUR ---
Patient and caregiver given discharge instructions and they have confirmed that they understand the instructions. Patient pushed in wheelchair to d/c by ED staff. DC paperwork provided in upper sorbian and english. Pt left with Rx, D/C papers, and all personal belongings. NADN. No other needs expressed.
[2020-04-09 17:27] VITALS: BP 109/78
== END 2020-04-09 17:29 | disposition home or self-care (01) ==
LOC: ED 13:38
DX: K51.90 Ulcerative colitis, unspecified, without complications (principal); R11.2 Nausea with vomiting, unspecified; R50.9 Fever, unspecified; R10.32 Left lower quadrant pain
CPT/HCPCS: 36415; 74177; 80053; 81001; 83690; 85025; 87086; 96361; 96365; 96366; 96367; 96375; 96376; 99285; J0744; J2405; J7030; Q9967